=== PATIENT | female | born 1960 | race Caucasian/White ===

== ENCOUNTER 2018-02-27 09:28 | Outpatient (CLI) | payer OTHER ==
--- NOTE | 2018-02-27 11:49 | MMO ---
BILATERAL SCREENING MAMMOGRAM: Date: 02/27/18 COMPARISON: 09/23/16 and 09/02/15. HISTORY: Screening. FINDINGS: This patient's mammogram was interpreted with the assistance of computer-aided detection. No mass or architectural distortion. No concerning microcalcifications are noted. There are intramamm annmarie nodes present on the right. IMPRESSION: BIRADS 2: Benign Finding(s) Annual screening mammography recommended. POS: [facility]
== END 2018-02-27 09:29 | disposition home or self-care (01) ==
LOC: SCSMAMMO 09:28
PROVIDERS: ATTEND Family Medicine
DX: Z12.31 Encounter for screening mammogram for malignant neoplasm of breast (principal)
CPT/HCPCS: 77067

== ENCOUNTER 2019-02-28 09:04 | Outpatient (CLI) | payer OTHER ==
--- NOTE | 2019-02-28 10:16 | MMO ---
Bilateral MAMMO Bilat Screen [facility]. CLINICAL HISTORY: Patient is 58 years old and is seen for screening. The patient has the following family history of breast cancer: aunt, at age 60, malignant (generic). The patient has no personal history of cancer. VIEWS: The views performed were: bilateral craniocaudal and bilateral mediolateral oblique. FILMS COMPARED: The present examination has been compared to prior imaging studies performed at [facility] on 09/02/2015, 09/23/2016 and 02/27/2018, and at [place], [place] on 04/23/2014. This study has been interpreted with the assistance of computer-aided detection. MAMMOGRAM FINDINGS: There are scattered fibroglandular densities. There are no suspicious masses, suspicious calcifications, or new areas of architectural distortion. IMPRESSION: THERE IS NO MAMMOGRAPHIC EVIDENCE OF MALIGNANCY. A ROUTINE FOLLOW-UP MAMMOGRAM IN 1 YEAR IS RECOMMENDED. ACR BI-RADS Category 1 - Negative MAMMOGRAPHY NOTE: 1. A negative mammogram report should not delay a biopsy if a dominant of clinically suspicious mass is present. 2. Approximately 10% to 15% of breast cancers are not detected by mammography. 3. Adenosis and dense breasts may obscure an underlying neoplasm.
== END 2019-02-28 09:05 | disposition home or self-care (01) ==
LOC: SCSMAMMO 09:04
PROVIDERS: ATTEND Family Medicine
DX: Z12.31 Encounter for screening mammogram for malignant neoplasm of breast (principal); Z80.3 Family history of malignant neoplasm of breast
CPT/HCPCS: 77067